=== PATIENT | male | born 1990 | race African-American/Black ===

== ENCOUNTER 2020-03-01 17:54 | Emergency (ER) | payer MEDICAID, SELFPAY ==
--- NOTE | ~2020-03-01 | XR_ITS ---
EXAMINATION: XR chest 1V portable INDICATION: Chest pressure TECHNIQUE: Portable AP chest at 1831 hours COMPARISON: None available FINDINGS: Diffuse interstitial and airspace opacities are present. There is no pleural effusion or pn eumothorax. The cardiomediastinal silhouette is normal. The visualized osseous structures are unremar kable. IMPRESSION: 1. Diffuse interstitial and airspace opacities which could reflect pneumonia and/or pulmonary edema. Reviewed, dictated and finalized at location A. [employer] IMPRESSION: 1. Diffuse interstitial and airspace opacities which could reflect pneumonia an d/or pulmonary edema.
[2020-03-01 17:58] VITALS: BP 135/89; PULSE 101; RESP 18; TEMP 36.8; O2SAT 99
--- NOTE | 2020-03-01 17:58 | ECG_ITS ---
Measurements Intervals [place] Rate: 92 P: 38 ME: 131 QRS: -27 QRSD: 97 T: 33 QT: 328 QTc: 407 Interpretive Statements SINUS RHYTHM DELAYED PRECORDIAL R/S TRANSITION NONSPECIFIC ST ELEVATION IN DIFFUSE LEADS BASELINE WANDER- I, III, V3-V6 BORDERLINE ECG Electronically Signed On 03-01-2020 18:57:33 [employer] by Robert Ricardo D.O.
[2020-03-01 18:23] LABS: Basophils Percent Auto 0.3 % (0.2-1.2); Eosinophils Percent Auto 0.3 % (0-4.4); Hematocrit 48.4 % (42.0-52.0); Hemoglobin 16.6 g/dL (14.0-18.0); Immature Granulocyte Absolute 0.01 K/mm3 (0.00-0.031); Immature Granulocyte Percent A 0.3 % (0-0.5); Lymphocytes Absolute Auto 1.34 K/mm3 (0.9-3.2); Mean Corpuscular HGB Conc 34.3 g/dl (32-36); Mean Corpuscular Volume 84.6 fl (80-100); Mean Platelet Volume 10.4 fl (7.4-10.4); Monocytes Absolute Auto 0.3 K/mm3 (0.1-0.6); Monocytes Percent Auto 7.4 % (2.6-8.5); Neutrophils Absolute Auto 2.3 K/mm3 (1.3-6.7); Neutrophils Percent Auto 57.7 % (45.5-73.1); Platelet Count Result 154 k/mm3 (150-375); Red Blood Count 5.72 M/mm3 (4.6-6.20); Red Cell Distribution Width 13.2 % (11.5-14.5); White Blood Count 3.9 K/mm3 (4.5-10.0)
[2020-03-01 18:30] LABS: Partial Thromboplastin Time 32.7 SECONDS (22.3-36.8)
[2020-03-01 18:39] LABS: Anion Gap 6 mmol/L (8-16); Blood Urea Nitrogen 10 mg/dL (9-20); Calcium 8.8 mg/dL (8.4-10.2); Carbon Dioxide 26 mmol/L (22-30); Chloride 103 mmol/L (98-107); Estimated CRCL calculation 86 ml/min; Estimated Glomerular Filt Rate > 60; Glucose 101 mg/dL (75-110); Sodium 135 mmol/L (137-145)
[2020-03-01 18:51] LABS: Troponin I < 0.012 ng/mL (0.000-0.034)
--- NOTE | 2020-03-01 19:29 | ED.URI ---
HPI - URI/Sore Throat General Chief Complaint: Upper Respiratory Infection Stated Complaint: Covid positive/diff breathing Time Seen by Provider: 03/01/20 19:16 Source: patient Mode of arrival: ambulatory Limitations: no limitations History of Present Illness HPI Narrative: Patient is a 29-year-old male who presents complaining of chest pressure and shortness of breath. Patient reports Covid positive on 02/29/20`. He reports increased shortness of breath and chest pressure starting this a.m. He denies all other complaints at this time. He denies taking [id number] medications for relief at this time. Related Data Allergies Allergy/AdvReac Type Severity Reaction Status Date / Time No Known Allergies Allergy Verified 03/01/20 18:05 Review of Systems Review of Systems: Narrative: CONSTITUTIONAL: Denies fever, chills, or sweats. EYES: Denies visual changes, redness, or discharge. ENT: Denies rhinorrhea, congestion, sore throat, or otalgia. CARDIOVASCULAR: Denies chest pain, palpitations, or edema. RESPIRATORY: Reports cough and dyspnea. GASTROINTESTINAL: Denies abdominal pain, nausea, vomiting, or diarrhea. GENITOURINARY: Denies dysuria or hematuria. SKIN: Denies rash or itching. MUSCULOSKELETAL: Denies back pain, joint pain, or myalgia. NEUROLOGIC: Denies headache, numbness, dizziness, or weakness. PSYCHIATRIC: Denies anxiety or depression. PMFSH Past Medical History Medical History (Updated 03/01/20 @ 19:37 by ANITA Bae) No significant past medical history Surgical History Surgical History (Updated 03/01/20 @ 19:32 by ANITA Bae) No significant past surgical history Family History Family History (Updated 03/01/20 @ 19:32 by ANITA Bae) Other No significant family history Social History Social History (Updated 03/01/20 @ 19:32 by ANITA Bae) Smoking status: Never smoker Alcohol intake: current Alcohol use details: Occasional Substance use: never Living arrangements: with family Gender identity (if verbalized by the patient): Male Exam Narrative: Exam Narrative: GENERAL: Well-appearing, well-nourished, and in no acute distress. HEAD: Normocephalic, atraumatic. EYES: No redness or drainage. ENT: Mucous membranes pink and moist. CHEST: No respiratory distress. HEART: Regular rate and rhythm. EXTREMITIES: Normal range of motion. SKIN: Warm, dry, no rash. NEURO: No focal deficits. Alert and oriented x3. Gait steady. PSYCH: Normal affect. No signs of depression or anxiety. Course Vital Signs Vital signs: Vital Signs Temperature 36.8 C 03/01/20 17:58 Pulse Rate 101 H 03/01/20 17:58 Respiratory Rate 18 03/01/20 17:58 Blood Pressure 135/89 03/01/20 17:58 Pulse Oximetry 99 03/01/20 17:58 Temperature 36.8 C 03/01/20 17:58 Pulse Rate 101 H 03/01/20 17:58 Respiratory Rate 18 03/01/20 17:58 Blood Pressure 135/89 03/01/20 17:58 Pulse Oximetry 99 03/01/20 17:58 Reviewed. Patient has been instructed to follow-up with his PCP regarding his blood pressure. MDM - URI/Sore Throat MDM Narrative Medical decision making narrative: Patient's vital signs are stable at this time. X-ray shows possible Covid pneumonia. Discussed with patient symptoms in which to return to the emergency department. Discussed hydration, symptomatic treatment, rest and quarantine with patient at this time. Patient is stable for discharge to home with outpatient follow-up as needed. Patient aware if/when he needs to return to the emergency department for further evaluation. Differential Diagnosis Differential diagnosis: Likely upper respiratory infection, otitis media, viral infection, bronchitis and pharyngitis Lab Data Result diagrams: 03/01/20 18:08 03/01/20 18:08 Labs: Lab Results 03/01/20 03/01/20 03/01/20 Range/Units 18:08 18:08 18:08 WBC 3.9 L (4.5-10.0) K/mm3 RBC 5.72 (4.6-
[2020-03-01 19:47] VITALS: BP 128/88; PULSE 90; RESP 20; O2SAT 97
== END 2020-03-01 19:49 | disposition home or self-care (01) ==
PROVIDERS: Emergency Medicine; Emergency Provider Nurse Practitioner
DX: U07.1 COVID-19 (principal); R94.31 Abnormal electrocardiogram [ECG] [EKG]; R91.8 Other nonspecific abnormal finding of lung field
CPT/HCPCS: 36415; 71045; 80048; 84484; 85025; 85610; 85730; 93005; 99284